=== PATIENT | male | born 1955 | race African-American/Black ===

== ENCOUNTER 2021-07-17 12:06 | Emergency (ER) | payer OTHER ==
[2021-07-17] MEDS ORDERED: Aspirin Chewable 81 MG TAB ONE (12:51)
[2021-07-17 13:18] LABS: Platelet Count 126 10x3/uL (150-450)
[2021-07-17 13:19] LABS: #Monocytes 0.5 10x3/uL (0.0-1.1); #Neutrophils 3.7 10x3/uL (1.5-8.4); %Basophils 0.2 % (0.0-2.0); %Eosinophils 0.2 % (0.0-6.0); %Lymphocytes 29.5 % (18.0-47.0); %Monocytes 8.4 % (0.0-10.0); %Neutrophils 61.5 % (40.0-75.0); Hemoglobin 12.5 g/dL (13.5-17.5); Mean Corpuscular Hemoglobin 23.2 pg (27.0-33.0); Mean Corpuscular Volume 77.3 fl (81.2-95.1); RBC Distribution Width 21.2 % (11.5-14.5); Red Blood Cell (RBC) Count 5.38 10x6/uL (4.32-5.72)
[2021-07-17 13:25] LABS: PTT 23.6 sec (22.0-33.0); Prothrombin Time 11.4 sec (9.5-12.1)
[2021-07-17 13:27] LABS: ALT (SGPT) 17 U/L (8-55); AST (SGOT) 21 U/L (5-34); Albumin 3.9 g/dL (3.4-4.8); Alkaline Phosphatase 49 U/L (40-110); Anion Gap 11 mmol/L (10-20); BUN (Urea Nitrogen) 12 mg/dL (8.4-25.7); Bilirubin, Total 1.2 mg/dL (0.2-1.2); Calc. Creatinine Clearance 0 mL/min (70-130); Calcium 9.6 mg/dL (7.8-10.44); Carbon Dioxide 23 mmol/L (23-31); Chloride 108 mmol/L (98-107); Glucose 101 mg/dL (80-115); Lipase 51 U/L (8-78); Potassium 4.9 mmol/L (3.5-5.1); Protein, Total 7.9 g/dL (5.8-8.1); Sodium 137 mmol/L (136-145)
[2021-07-17] MEDS ORDERED: cefTRIAXone\\ROCEPHIN 1 GM VIAL ONE ×2 (13:37→13:49)
[2021-07-17] MEDS ORDERED: Pantoprazole 40 MG VIAL ONE (13:38)
[2021-07-17] MEDS ORDERED: Octreotide Acetate 1,250 MCG in Sodium Chloride 0.9% 250 ML 250 ML IVPB SCH (14:00)
[2021-07-17 16:53] LABS: Bilirubin Neg (Negative); Blood, Urine Negative (Negative); Glucose, Urine (Dipstick) Normal (Negative); Ketone, Urine Negative (Negative); Leukocyte Negative (Negative); Nitrite Negative (Negative); Protein, Urine (Dipstick) 30 mg/dl (Neg-Trace); Urobilinogen Normal mg/dL (Less than 2)
[2021-07-17 17:08] LABS: Clarity Clear (Clear)
[2021-07-17 17:23] LABS: Bacteria/HPF None Seen HPF (None Seen); RBC/HPF None Seen HPF (0-3); Squamous Epithelial None Seen HPF (0-3); WBC/HPF None Seen HPF (0-3)
== END 2021-07-17 17:07 ==
LOC: CSHERS 12:06
DX: R07.2 Precordial pain (principal); I10 Essential (primary) hypertension; K21.9 Gastro-esophageal reflux disease without esophagitis; Z79.899 Other long term (current) drug therapy; Z79.82 Long term (current) use of aspirin
CPT/HCPCS: 36415; 71045; 71275; 74174; 80053; 81003; 81015; 82140; 83690; 83880; 84484; 85025; 85610; 85730; 93005; 96374; 96375; C9113; J0696; J2354; J7050

== ENCOUNTER 2022-05-24 20:10 | Observation (INO) | payer OTHER ==
[2022-05-24 20:59] LABS: INR-International Normal Ratio 1.6; Prothrombin Time 16.6 sec (9.5-12.1)
[2022-05-24 21:02] LABS: SARS-CoV-2 NAA Rapid Test Not Detected (NotDetected)
[2022-05-24 21:10] LABS: ALT (SGPT) 23 U/L (8-55); AST (SGOT) 22 U/L (5-34); Albumin 3.7 g/dL (3.4-4.8); Alkaline Phosphatase 44 U/L (40-110); Anion Gap 12 mmol/L (10-20); BUN (Urea Nitrogen) 13 mg/dL (8.4-25.7); Calc. Creatinine Clearance 0 mL/min (70-130); Calcium 8.4 mg/dL (7.8-10.44); Carbon Dioxide 22 mmol/L (23-31); Chloride 110 mmol/L (98-107); Estimated GFR 73; Globulin 3.1 g/dL (2.4-3.5); Glucose 96 mg/dL (80-115); Potassium 3.7 mmol/L (3.5-5.1); Protein, Total 6.8 g/dL (5.8-8.1); Sodium 140 mmol/L (136-145)
[2022-05-24 21:18] LABS: Hemoglobin 11.8 g/dL (13.5-17.5); Mean Corpuscular HGB CONC 31.8 g/dL (32.0-36.0); Mean Corpuscular Hemoglobin 24.9 pg (27.0-33.0); Mean Corpuscular Volume 78.4 fl (81.2-95.1); Mean Platelet Volume 10.2 fl (7.4-10.4); Platelet Count 99 10x3/uL (150-450); RBC Distribution Width 17.6 % (11.5-14.5); Red Blood Cell (RBC) Count 4.73 10x6/uL (4.32-5.72); White Blood Cell (WBC) Count 3.2 10x3/uL (3.5-10.5)
[2022-05-24 21:33] LABS: CKMB 1.3 ng/mL (0-6.6)
[2022-05-24 21:46] LABS: MDiff Complete? YES
[2022-05-24 21:47] LABS: Hypochromia SLIGHT = 6-15 cells (100X) (0-5/hpf); Platelet Morphology Comment Appears Decreased
[2022-05-24] MEDS ORDERED: Furosemide 40 MG/4 ML VIAL ONE (21:49)
[2022-05-24 21:51] LABS: Lymphocytes 66 % (21-51); Monocytes 10 % (0-10); Neutrophil 24 % (42-75)
[2022-05-24 22:48] LABS: Reflex for Review?? YES
[2022-05-24] MEDS ORDERED: Enoxaparin Sodium 80 MG/0.8 ML SYRINGE SC SCH (23:45)
[2022-05-25] MEDS ORDERED: Enoxaparin Sodium 80 MG/0.8 ML SYRINGE SC SCH ×3 (01:15→11:15)
[2022-05-25] MEDS ORDERED: Warfarin Sodium 5 MG TAB PO SCH (01:15)
[2022-05-25] MEDS ORDERED: Potassium Chloride 20 MEQ TAB PO SCH (01:15)
[2022-05-25 02:14] LABS: Troponin I 0.037 ng/mL (< 0.028)
[2022-05-25 05:38] LABS: Hemoglobin 12.6 g/dL (13.5-17.5); Mean Corpuscular HGB CONC 31.7 g/dL (32.0-36.0); Mean Corpuscular Hemoglobin 25.1 pg (27.0-33.0); Mean Corpuscular Volume 79.3 fl (81.2-95.1); Mean Platelet Volume 11.3 fl (7.4-10.4); Platelet Count 96 10x3/uL (150-450); RBC Distribution Width 18.1 % (11.5-14.5); Red Blood Cell (RBC) Count 5.02 10x6/uL (4.32-5.72); White Blood Cell (WBC) Count 3.3 10x3/uL (3.5-10.5)
[2022-05-25 05:42] LABS: MDiff Complete? YES
[2022-05-25 05:44] LABS: Anion Gap 15 mmol/L (10-20); BUN (Urea Nitrogen) 13 mg/dL (8.4-25.7); Calc. Creatinine Clearance 148 mL/min (70-130); Calcium 8.8 mg/dL (7.8-10.44); Carbon Dioxide 20 mmol/L (23-31); Chloride 109 mmol/L (98-107); Estimated GFR 72; Glucose 114 mg/dL (80-115); Potassium 3.8 mmol/L (3.5-5.1); Sodium 140 mmol/L (136-145)
[2022-05-25 05:52] LABS: Troponin I 0.028 ng/mL (< 0.028)
[2022-05-25 06:00] LABS: Eosinophils 1 % (0-10); Lymphocytes 67 % (21-51); Monocytes 10 % (0-10); Neutrophil 22 % (42-75)
[2022-05-25 06:02] LABS: Platelet Morphology Comment Appears Decreased; RBC Morphology Normal
[2022-05-25 06:32] LABS: INR-International Normal Ratio 1.4; PTT 35.6 sec (22.0-33.0); Prothrombin Time 15.4 sec (9.5-12.1)
[2022-05-25 08:18] VITALS: BMI 27.6
[2022-05-25 08:24] LABS: Hemoglobin 12.6 g/dL (13.5-17.5); Platelet Count 100 10x3/uL (150-450)
[2022-05-25 08:30] LABS: Anion Gap 14 mmol/L (10-20); BUN (Urea Nitrogen) 14 mg/dL (8.4-25.7); Calc. Creatinine Clearance 69 mL/min (70-130); Calcium 8.8 mg/dL (7.8-10.44); Carbon Dioxide 24 mmol/L (23-31); Chloride 108 mmol/L (98-107); Estimated GFR 74; Glucose 80 mg/dL (80-115); Magnesium 1.8 mg/dL (1.6-2.6); Phosphorus 2.8 mg/dL (2.3-4.7); Potassium 4.1 mmol/L (3.5-5.1); Sodium 142 mmol/L (136-145)
[2022-05-25] MEDS ORDERED: Enoxaparin Sodium 40 MG/0.4 ML SYRINGE SC SCH (09:00)
[2022-05-25] MEDS ORDERED: Enoxaparin Sodium 120 MG/0.8 ML SYRINGE SC SCH ×2 (09:00)
[2022-05-25] MEDS: Aspirin 81 mg Enteric Coated Tablet PO SCH (09:22)
[2022-05-25] MEDS: Lisinopril 20 MG TAB PO SCH (09:23)
[2022-05-25] MEDS: Amlodipine 10 MG TAB PO SCH (09:23)
[2022-05-25] MEDS ORDERED: hydrALAZINE 20 MG/ML VIAL SLOW IVP PRN (13:20)
[2022-05-25] MEDS ORDERED: Furosemide 20 MG/2 ML VIAL SLOW IVP SCH (15:00)
[2022-05-25] MEDS ORDERED: Warfarin Sodium 2.5 MG TAB PO SCH (17:00)
[2022-05-25] MEDS ORDERED: Atorvastatin Calcium 40 MG TAB PO SCH (21:00)
[2022-05-25] MEDS: Enoxaparin Sodium 80 MG/0.8 ML SYRINGE SC SCH (21:34)
[2022-05-26 05:13] LABS: ALT (SGPT) 18 U/L (8-55); AST (SGOT) 20 U/L (5-34); Albumin 3.7 g/dL (3.4-4.8); Alkaline Phosphatase 44 U/L (40-110); Anion Gap 15 mmol/L (10-20); BUN (Urea Nitrogen) 19 mg/dL (8.4-25.7); Bilirubin, Total 1.4 mg/dL (0.2-1.2); Calc. Creatinine Clearance 62 mL/min (70-130); Calcium 9.1 mg/dL (7.8-10.44); Carbon Dioxide 25 mmol/L (23-31); Chloride 107 mmol/L (98-107); Estimated GFR 64; Globulin 3.8 g/dL (2.4-3.5); Glucose 105 mg/dL (80-115); Iron 31 ug/dL (65-175); Iron Binding Capacity, Total 263 mcg/dL (261-462); Protein, Total 7.5 g/dL (5.8-8.1); Sodium 143 mmol/L (136-145)
[2022-05-26 05:25] LABS: #Eosinphils 0.1 10x3/uL (0.0-0.5); #Monocytes 0.3 10x3/uL (0.0-1.1); %Basophils 0.6 % (0.0-2.0); %Eosinophils 1.5 % (0.0-6.0); %Lymphocytes 69.1 % (18.0-47.0); %Monocytes 9.3 % (0.0-10.0); Hemoglobin 13.4 g/dL (13.5-17.5); Mean Corpuscular HGB CONC 31.7 g/dL (32.0-36.0); Mean Corpuscular Volume 78.8 fl (81.2-95.1); Mean Platelet Volume 11.3 fl (7.4-10.4); RBC Distribution Width 18.5 % (11.5-14.5); Red Blood Cell (RBC) Count 5.37 10x6/uL (4.32-5.72); White Blood Cell (WBC) Count 3.4 10x3/uL (3.5-10.5)
[2022-05-26 05:26] LABS: #Neutrophils 0.7 10x3/uL (1.5-8.4); %Neutrophils 19.5 % (40.0-75.0)
[2022-05-26 05:30] LABS: Platelet Count 107 10x3/uL (150-450)
[2022-05-26 05:33] LABS: Platelet Morphology Comment Appears Decreased; RBC Morphology Normal
[2022-05-26 05:34] LABS: Lymphocytes 68 % (21-51); Monocytes 12 % (0-10)
[2022-05-26] MEDS: Amlodipine 10 MG TAB PO SCH (09:20)
[2022-05-26] MEDS: Aspirin 81 mg Enteric Coated Tablet PO SCH (09:20)
[2022-05-26] MEDS: Lisinopril 20 MG TAB PO SCH (09:20)
[2022-05-26] MEDS: Enoxaparin Sodium 80 MG/0.8 ML SYRINGE SC SCH (10:44)
[2022-05-26 12:59] VITALS: BP 150/77; TEMP 97.3
[2022-05-26] MEDS ORDERED: Warfarin Sodium 5 MG TAB PO SCH (17:00)
[2022-05-27] MEDS ORDERED: Warfarin Sodium 5 MG TAB PO SCH (17:00)
== END 2022-05-26 15:30 ==
LOC: CSHERS 20:10 → CSHTELE 05-25 00:43 → EEVIPCON 05-25 00:43
PROVIDERS: ADMIT Family Medicine; ATTEND Family Medicine
DX: I48.91 Unspecified atrial fibrillation (principal); R00.1 Bradycardia, unspecified; I47.2 Ventricular tachycardia; I11.0 Hypertensive heart disease with heart failure; I50.9 Heart failure, unspecified; I25.10 Atherosclerotic heart disease of native coronary artery without angina pectoris; E78.5 Hyperlipidemia, unspecified; R79.1 Abnormal coagulation profile; K74.60 Unspecified cirrhosis of liver; D69.6 Thrombocytopenia, unspecified; K21.9 Gastro-esophageal reflux disease without esophagitis; I34.0 Nonrheumatic mitral (valve) insufficiency; Z86.16 Personal history of COVID-19; Z86.718 Personal history of other venous thrombosis and embolism; Z86.73 Personal history of transient ischemic attack (TIA), and cerebral infarction without residual deficits; Z87.891 Personal history of nicotine dependence; Z79.01 Long term (current) use of anticoagulants; Z79.82 Long term (current) use of aspirin; Z79.899 Other long term (current) drug therapy; Z91.011 Allergy to milk products; Z95.1 Presence of aortocoronary bypass graft; Z95.5 Presence of coronary angioplasty implant and graft; Z20.822 Contact with and (suspected) exposure to COVID-19
CPT/HCPCS: 36415; 70450; 71045; 80048; 80053; 82140; 82553; 82607; 82746; 83540; 83550; 83735; 83880; 84100; 84443; 84484; 85025; 85060; 85610; 85730; 86850; 86900; 86901; 93005; 93010; 93306; 96372; 96374; G0378; J0360; J1650; J1940; U0002

== ENCOUNTER 2023-04-05 11:12 | Emergency (ER) | payer OTHER ==
[~2023-04-05 11:12] MED LIST: Iopamidol 370 76% 100 ML VIAL ONE
[2023-04-05 12:17] LABS: INR-International Normal Ratio 1.6; PTT 31.6 sec (22.0-33.0); Prothrombin Time 17.2 sec (9.5-12.1)
[2023-04-05 12:26] LABS: ALT (SGPT) 29 U/L (8-55); AST (SGOT) 24 U/L (5-34); Albumin 3.8 g/dL (3.4-4.8); Alkaline Phosphatase 43 U/L (40-110); Anion Gap 11 mmol/L (10-20); BUN (Urea Nitrogen) 12 mg/dL (8.4-25.7); Bilirubin, Total 1.5 mg/dL (0.2-1.2); Calc. Creatinine Clearance 0 mL/min (70-130); Calcium 8.8 mg/dL (7.8-10.44); Carbon Dioxide 25 mmol/L (23-31); Chloride 108 mmol/L (98-107); Estimated GFR 76; Globulin 3.4 g/dL (2.4-3.5); Glucose 99 mg/dL (80-115); Lipase 38 U/L (8-78); Magnesium 1.9 mg/dL (1.6-2.6); Potassium 5.1 mmol/L (3.5-5.1); Protein, Total 7.2 g/dL (5.8-8.1); Sodium 139 mmol/L (136-145)
[2023-04-05 12:29] LABS: Hemoglobin 13.8 g/dL (13.5-17.5); Mean Corpuscular HGB CONC 31.3 g/dL (32.0-36.0); Mean Corpuscular Hemoglobin 26.3 pg (27.0-33.0); Mean Platelet Volume 10.5 fl (7.4-10.4); Platelet Count 113 10x3/uL (150-450); RBC Distribution Width 18.8 % (11.5-14.5); Red Blood Cell (RBC) Count 5.25 10x6/uL (4.32-5.72); White Blood Cell (WBC) Count 5.4 10x3/uL (3.5-10.5)
[2023-04-05 12:47] LABS: CKMB 4.9 ng/mL (0-6.6)
[2023-04-05 12:50] LABS: SARS-CoV-2 NAA Rapid Test Not Detected (NotDetected)
[2023-04-05 12:56] LABS: MDiff Complete? YES; Manual Diff?? YES
[2023-04-05 13:13] LABS: Eosinophils 1 % (0-10); Lymphocytes 72 % (21-51); Monocytes 7 % (0-10); Neutrophil 20 % (42-75)
[2023-04-05 13:14] LABS: Anisocytosis SLIGHT = 6-15 cells (100X) (0-5/hpf); Platelet Morphology Comment Appears Decreased
[2023-04-05] MEDS ORDERED: Aspirin 325 MG TAB ONE (13:45)
[2023-04-05] MEDS ORDERED: Metoprolol Tartrate 25 MG TAB ONE ×2 (15:05→21:30)
[2023-04-05] MEDS ORDERED: Amlodipine 5 MG TAB ONE (15:06)
[2023-04-05 15:54] LABS: CKMB 4.7 ng/mL (0-6.6)
[2023-04-05] MEDS ORDERED: Atorvastatin Calcium 40 MG TAB PO SCH (21:15)
[2023-04-05] MEDS ORDERED: Fenofibrate Nanocrystallized 145 MG TAB PO SCH (21:15)
[2023-04-05] MEDS ORDERED: Metoprolol Tartrate 25 MG TAB PO SCH (21:15)
[2023-04-05] MEDS ORDERED: Docusate 100 MG CAP PO SCH (21:15)
[2023-04-05] MEDS ORDERED: Atorvastatin Calcium 40 MG TAB ONE (21:31)
[2023-04-05 22:41] LABS: CKMB 3.4 ng/mL (0-6.6)
== END 2023-04-06 09:50 | disposition short-term general hospital (02) ==
LOC: CSHERS 11:12 → EEVIPCON 11:12 → CSHERS 04-06 09:50
DX: I21.4 Non-ST elevation (NSTEMI) myocardial infarction (principal); I25.10 Atherosclerotic heart disease of native coronary artery without angina pectoris; I10 Essential (primary) hypertension; K21.9 Gastro-esophageal reflux disease without esophagitis; Z79.82 Long term (current) use of aspirin; Z79.899 Other long term (current) drug therapy; Z79.01 Long term (current) use of anticoagulants; Z20.822 Contact with and (suspected) exposure to COVID-19
CPT/HCPCS: 36415; 70450; 71275; 74177; 80053; 82553; 83605; 83690; 83735; 83880; 84484; 85025; 85610; 85730; 93005; 96372; J1650; Q9967

== ENCOUNTER 2023-07-12 20:45 | Inpatient (IN) | payer OTHER ==
[2023-07-12 21:20] LABS: #Monocytes 0.3 10x3/uL (0.0-1.1); %Basophils 0.3 % (0.0-2.0); %Eosinophils 1.4 % (0.0-6.0); %Lymphocytes 51.2 % (18.0-47.0); %Monocytes 11.8 % (0.0-10.0); %Neutrophils 35.3 % (40.0-75.0); Hematocrit 39.8 % (38.8-50.0); Hemoglobin 12.4 g/dL (13.5-17.5); Mean Corpuscular HGB CONC 31.2 g/dL (32.0-36.0); Mean Corpuscular Hemoglobin 25.9 pg (27.0-33.0); Mean Corpuscular Volume 83.3 fl (81.2-95.1); Mean Platelet Volume 10.8 fl (7.4-10.4); Platelet Count 119 10x3/uL (150-450); RBC Distribution Width 16.3 % (11.5-14.5); Red Blood Cell (RBC) Count 4.78 10x6/uL (4.32-5.72); White Blood Cell (WBC) Count 2.9 10x3/uL (3.5-10.5)
[2023-07-12 21:25] LABS: INR-International Normal Ratio 1.1; Prothrombin Time 11.7 sec (9.5-12.1)
[2023-07-12 21:29] LABS: ALT (SGPT) 21 U/L (8-55); AST (SGOT) 26 U/L (5-34); Albumin 3.7 g/dL (3.4-4.8); Alkaline Phosphatase 39 U/L (40-110); Anion Gap 13 mmol/L (10-20); BUN (Urea Nitrogen) 16 mg/dL (8.4-25.7); Bilirubin, Total 1.5 mg/dL (0.2-1.2); Calc. Creatinine Clearance 0 mL/min (70-130); Calcium 8.5 mg/dL (7.8-10.44); Carbon Dioxide 22 mmol/L (23-31); Chloride 109 mmol/L (98-107); Estimated GFR 63; Glucose 135 mg/dL (80-115); Potassium 4.1 mmol/L (3.5-5.1); Protein, Total 6.7 g/dL (5.8-8.1); Sodium 140 mmol/L (136-145)
[2023-07-12 21:41] LABS: Troponin I 1.558 ng/mL (< 0.028)
[2023-07-12 21:49] LABS: Platelet Adequacy Comment Appears Decreased
[2023-07-12 21:50] LABS: Microcytosis SLIGHT = 6-15 cells (100X) (0-5/hpf)
[2023-07-12] MEDS ORDERED: Apixaban 5 MG TAB ONE (22:38)
[2023-07-13] MEDS ORDERED: Acetaminophen 325 MG TAB PO PRN (00:55)
[2023-07-13] MEDS ORDERED: Ondansetron PF 4 MG/2 ML Vial IVP PRN (00:55)
[2023-07-13] MEDS ORDERED: Calcium Carbonate 500 MG ChewTAB PO PRN (00:55)
[2023-07-13] MEDS ORDERED: Senokot S 8.6-50 MG TAB PO PRN (00:55)
[2023-07-13] MEDS ORDERED: Nitroglycerin 0.4 MG TAB (25 Tab Bottle) SL PRN (01:04)
[2023-07-13 01:10] LABS: Actual Bicarbonate (HCO3v) 21.4 mEq/L (22-28); Calcium, Ionized (venous) 1.02 mmol/L (1.16-1.32); Chloride (VBG) 107 mmol/L (98-106); Hematocrit-VBG 39 % (42.0-52.0); Hemoglobin (Hb) 13.2 g/dL (12.6-17.4); Potassium (VBG) 4.09 mmol/L (3.70-5.30); Puncture Site Other Site; RapidComm Collect By CBN; Sodium 137.9 mmol/L (133-146); pH (venous) 7.482 (7.32-7.43)
[2023-07-13 01:19] LABS: Hematocrit 38.8 % (38.8-50.0); Hemoglobin 12.1 g/dL (13.5-17.5); Mean Corpuscular HGB CONC 31.2 g/dL (32.0-36.0); Mean Corpuscular Hemoglobin 26.1 pg (27.0-33.0); Mean Corpuscular Volume 83.6 fl (81.2-95.1); Mean Platelet Volume 10.5 fl (7.4-10.4); Platelet Count 110 10x3/uL (150-450); RBC Distribution Width 16.3 % (11.5-14.5); Red Blood Cell (RBC) Count 4.64 10x6/uL (4.32-5.72); White Blood Cell (WBC) Count 3.4 10x3/uL (3.5-10.5)
[2023-07-13 01:20] LABS: MDiff Complete? YES
[2023-07-13 01:27] LABS: ALT (SGPT) 21 U/L (8-55); AST (SGOT) 27 U/L (5-34); Albumin 3.6 g/dL (3.4-4.8); Alkaline Phosphatase 37 U/L (40-110); Anion Gap 13 mmol/L (10-20); BUN (Urea Nitrogen) 15 mg/dL (8.4-25.7); Bilirubin, Total 1.3 mg/dL (0.2-1.2); Calc. Creatinine Clearance 0 mL/min (70-130); Calcium 8.2 mg/dL (7.8-10.44); Carbon Dioxide 21 mmol/L (23-31); Chloride 110 mmol/L (98-107); Estimated GFR 67; Globulin 2.8 g/dL (2.4-3.5); Glucose 102 mg/dL (80-115); Potassium 4.1 mmol/L (3.5-5.1); Protein, Total 6.4 g/dL (5.8-8.1); Sodium 140 mmol/L (136-145)
[2023-07-13 01:44] LABS: Microcytosis SLIGHT = 6-15 cells (100X) (0-5/hpf); Platelet Adequacy Comment Appears Decreased; Troponin I 1.585 ng/mL (< 0.028)
[2023-07-13 01:49] LABS: Band 2 % (5-11); Eosinophils 2 % (0-10); Lymphocytes 64 % (21-51); Monocytes 9 % (0-10); Neutrophil 23 % (42-75)
[2023-07-13] MEDS ORDERED: Nitroglycerin 2% Ointment 1 INCH/1 GM Packet ONE (01:49)
[2023-07-13 01:50] LABS: Hypochromia SLIGHT = 6-15 cells (100X) (0-5/hpf)
[2023-07-13] MEDS ORDERED: Nitroglycerin 2% Ointment 1 INCH/1 GM Packet TOP SCH (02:00)
[2023-07-13 03:37] VITALS: BMI 24.7
[2023-07-13 05:52] LABS: Troponin I 1.445 ng/mL (< 0.028)
[2023-07-13] MEDS ORDERED: Amlodipine 5 MG TAB ONE (08:30)
[2023-07-13] MEDS ORDERED: Clopidogrel Bisulfate 75 MG TAB ONE (08:30)
[2023-07-13] MEDS ORDERED: Lisinopril 10 MG TAB ONE (08:31)
[2023-07-13] MEDS ORDERED: Lisinopril 20 MG TAB PO SCH (09:00)
[2023-07-13] MEDS: Clopidogrel Bisulfate 75 MG TAB PO SCH (09:13)
[2023-07-13] MEDS: Docusate 100 MG CAP PO SCH (09:13)
[2023-07-13] MEDS: Amlodipine 10 MG TAB PO SCH (09:13)
[2023-07-14] MEDS: Lisinopril 20 MG TAB PO SCH ×3 (00:24→22:56)
[2023-07-14] MEDS: Atorvastatin Calcium 40 MG TAB PO SCH ×2 (00:25→22:57)
[2023-07-14] MEDS: Docusate 100 MG CAP PO SCH ×3 (00:25→21:00)
[2023-07-14] MEDS: Amlodipine 10 MG TAB PO SCH (08:43)
[2023-07-14] MEDS: Clopidogrel Bisulfate 75 MG TAB PO SCH (08:44)
[2023-07-14] MEDS ORDERED: Communication Order-Pharmacy FS SCH (09:00)
[2023-07-14 09:55] LABS: INR-International Normal Ratio 1.1
[2023-07-15 04:53] LABS: #Monocytes 0.4 10x3/uL (0.0-1.1); #Neutrophils 1.1 10x3/uL (1.5-8.4); %Basophils 0.3 % (0.0-2.0); %Eosinophils 0.6 % (0.0-6.0); %Lymphocytes 53.9 % (18.0-47.0); %Monocytes 11.1 % (0.0-10.0); %Neutrophils 34.1 % (40.0-75.0); Hematocrit 40.4 % (38.8-50.0); Hemoglobin 12.9 g/dL (13.5-17.5); Mean Corpuscular HGB CONC 32.1 g/dL (32.0-36.0); Mean Corpuscular Hemoglobin 26.1 pg (27.0-33.0); Mean Corpuscular Volume 81.3 fl (81.2-95.1); Mean Platelet Volume 10.1 fl (7.4-10.4); Platelet Count 119 10x3/uL (150-450); RBC Distribution Width 16.1 % (11.5-14.5); Red Blood Cell (RBC) Count 4.98 10x6/uL (4.32-5.72); White Blood Cell (WBC) Count 3.2 10x3/uL (3.5-10.5)
[2023-07-15 05:01] LABS: INR-International Normal Ratio 1.1; PTT 31.1 sec (22.0-33.0); Prothrombin Time 11.7 sec (9.5-12.1)
[2023-07-15 05:04] LABS: ALT (SGPT) 16 U/L (8-55); AST (SGOT) 19 U/L (5-34); Albumin 3.7 g/dL (3.4-4.8); Alkaline Phosphatase 37 U/L (40-110); Anion Gap 14 mmol/L (10-20); BUN (Urea Nitrogen) 14 mg/dL (8.4-25.7); Bilirubin, Total 1.7 mg/dL (0.2-1.2); Calc. Creatinine Clearance 55 mL/min (70-130); Calcium 8.8 mg/dL (7.8-10.44); Carbon Dioxide 21 mmol/L (23-31); Chloride 107 mmol/L (98-107); Estimated GFR 65; Globulin 3.4 g/dL (2.4-3.5); Glucose 96 mg/dL (80-115); Protein, Total 7.1 g/dL (5.8-8.1); Sodium 138 mmol/L (136-145)
[2023-07-15] MEDS: Amlodipine 10 MG TAB PO SCH (06:40)
[2023-07-15] MEDS: Clopidogrel Bisulfate 75 MG TAB PO SCH (06:40)
[2023-07-15] MEDS: Lisinopril 20 MG TAB PO SCH (06:40)
[2023-07-15] MEDS: Docusate 100 MG CAP PO SCH (06:41)
[2023-07-15] MEDS ORDERED: Lidocaine 1% (PF) 30 ML VIAL ONE (07:09)
[2023-07-15] MEDS ORDERED: Heparin 10,000 UNITS/ 10 ML VIAL ONE (07:10)
[2023-07-15] MEDS ORDERED: Nitroglycerin 50 MG/250 ML BOT 0 ML ONE (07:12)
[2023-07-15] MEDS ORDERED: fentaNYL 50 mcg/mL 1 mL Vial ONE (07:13)
[2023-07-15] MEDS ORDERED: Midazolam HCl 2 mg/2 ml Vial ONE ×2 (07:13→09:51)
[2023-07-15] MEDS ORDERED: hydrALAZINE 20 MG/ML VIAL SLOW IVP PRN (08:52)
[2023-07-15] MEDS ORDERED: Adenosine 6 MG/2 ML VIAL ONE (09:30)
[2023-07-15] MEDS ORDERED: Acetaminophen/Codeine 30-300mg Tablet PO PRN ×2 (10:26)
[2023-07-15] MEDS ORDERED: Sodium Chloride 0.9% 200 ML IV PRN (10:26)
[2023-07-15] MEDS ORDERED: Nitroglycerin 0.4 MG TAB (25 Tab Bottle) SL PRN (10:26)
[2023-07-15] MEDS ORDERED: Iopamidol 300 61% 100 ML VIAL FS ONE (15:17)
[2023-07-15 16:49] VITALS: BP 173/95; TEMP 99
[2023-07-15] MEDS ORDERED: Apixaban 5 MG TAB PO SCH (21:00)
== END 2023-07-15 20:29 | DRG 281 ==
LOC: EEVIPCON 20:45 → CSHERS 20:45 → CSHTELE 07-13 00:55 → CSHERHOLD 07-13 01:53 → CSHTELE 07-13 14:42
PROVIDERS: ADMIT Student in an Organized Health Care Education/Training Program; ATTEND Internal Medicine
PROC: 4A023N7 Measurement of Cardiac Sampling and Pressure, Left Heart, Percutaneous Approach (ICD-10-PCS; principal; 2023-07-13)
PROC: 4A043R1 Measurement of Venous Saturation, Peripheral, Percutaneous Approach (ICD-10-PCS; 2023-07-13)
DX: I21.4 Non-ST elevation (NSTEMI) myocardial infarction (principal); I48.11 Longstanding persistent atrial fibrillation; I48.92 Unspecified atrial flutter; I25.10 Atherosclerotic heart disease of native coronary artery without angina pectoris; I27.20 Pulmonary hypertension, unspecified; I10 Essential (primary) hypertension; E78.5 Hyperlipidemia, unspecified; K74.60 Unspecified cirrhosis of liver; R41.0 Disorientation, unspecified; D69.6 Thrombocytopenia, unspecified; G47.33 Obstructive sleep apnea (adult) (pediatric); Z91.011 Allergy to milk products; Z79.01 Long term (current) use of anticoagulants; Z79.899 Other long term (current) drug therapy; Z79.82 Long term (current) use of aspirin; Z95.1 Presence of aortocoronary bypass graft; Z86.73 Personal history of transient ischemic attack (TIA), and cerebral infarction without residual deficits; Z86.718 Personal history of other venous thrombosis and embolism; Z83.3 Family history of diabetes mellitus; Z87.891 Personal history of nicotine dependence
CPT/HCPCS: 36415; 70450; 71045; 71275; 80053; 82140; 82805; 84443; 84484; 85025; 85060; 85610; 85730; 93005; 93010; 93306; 93459; 99152; 99153; C1760; C1769; C1887; C1894; J0153; J1644; J1650; J2001; J2250; J3010; Q9967